=== PATIENT | male | born 1995 | race Caucasian/White ===

== ENCOUNTER 2020-09-15 12:19 | Emergency (ER) | payer OTHER ==
[~2020-09-15] VITALS: Ht 183 cm; Wt 68.0 kg
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
--- NOTE | 2020-09-15 14:40 | Diagnostic Imaging Report ---
EXAMINATION: CT head and face without contrast. TECHNIQUE: Multiple contiguous axial images were obtained through the face and brain without the use of intravenous contrast. All CT scans use one or more of the following dose optimizing techniques: automated exposure control, MA and/or KvP adjustment based on a patient size and exam type, or iterative reconstruction. HISTORY: Trauma COMPARISON: None available. FINDINGS: The ortiz-white matter differentiation is normal. No mass effect or midline shift. The ventricles are normal in size and configuration. Basilar cisterns are patent. There are no intra- or extra-axial fluid collections. There is no intracranial hemorrhage. The orbits are normal. There is bilateral maxillary sinus mucosal disease. Mastoid air cells are clear. No soft tissue abnormality is seen. No osseus lesions or fractures are seen. There is a mildly displaced fracture of the ankle of the right mandible extending into the alveolar ridge of the third right mandibular molar. Temporomandibular joint articulation is intact. There is soft tissue swelling throughout the right cheek. There is gas in the right agricultural commodities grader space. There is a periapical lucency of the right maxillary second incisor. The nasal bones are normal. Zygomatic arches are normal. Pterygoid plates are normal. IMPRESSION: 1. No acute intracranial abnormality. 2. Mildly displaced fracture of the angle of the right mandible extending at valvular region of the third right mandibular molar with extensive associated soft tissue swelling and stranding and gas in the right agricultural commodities grader space. Dictated by: Dictated on workstation # [id number]
[2020-09-15] MEDS ORDERED: LIDOCAINE 1% INJ 20 ML 20 ML VIAL INJ ONE (15:15)
[2020-09-15] MEDS ORDERED: cefTRIAXone 1,000 MG/2.86 ml vial (IM ONLY) IM ONE (15:15)
[2020-09-15] MEDS ORDERED: AMOX-358 PO (15:32)
[2020-09-15] MEDS ORDERED: ACHD5005 PO (15:32)
[2020-09-15] MEDS ORDERED: HYDROcodone/APAP 7.5 MG/325 MG (LORTAB, LORCET PLUS) TABLET PO ONE (15:45)
[2020-09-15 16:00] VITALS: BP 150/90
== END 2020-09-15 16:00 | disposition home or self-care (01) ==
LOC: ER 12:22
DX: S02.651A Fracture of angle of right mandible, initial encounter for closed fracture (principal); Z88.2 Allergy status to sulfonamides; Y04.8XXA Assault by other bodily force, initial encounter
CPT/HCPCS: 70450; 70486

== ENCOUNTER 2020-11-06 16:14 | Emergency (ER) | payer SELFPAY ==
[~2020-11-06] VITALS: Ht 182 cm; Wt 68.0 kg
[~2020-11-06 16:14] MED LIST: ACHD5005 PO; AMOX-358 PO
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
[2020-11-06 17:58] LABS: BASOPHILS # (AUTO) 0.1 10^3/uL (0.0-0.1); BASOPHILS % (AUTO) 1 % (0-10); EOSINOPHILS # (AUTO) 0.1 10^3/uL (0.0-0.3); EOSINOPHILS % (AUTO) 1 % (0-10); HEMATOCRIT 46 % (40-54); HEMOGLOBIN 15.6 g/dL (13.3-17.7); LYMPHOCYTES # (AUTO) 2.2 10^3/uL (1.0-4.0); LYMPHOCYTES % (AUTO) 21 % (12-44); MEAN CORPUSCULAR HEMOGLOBIN 31 pg (25-34); MEAN CORPUSCULAR HGB CONC 34 g/dL (32-36); MEAN CORPUSCULAR VOLUME 91 fL (80-99); MEAN PLATELET VOLUME 10.6 fL (9.0-12.2); MONOCYTES # (AUTO) 0.8 10^3/uL (0.0-1.0); MONOCYTES % (AUTO) 7 % (0-12); NEUTROPHILS # (AUTO) 7.4 10^3/uL (1.8-7.8); NEUTROPHILS % (AUTO) 70 % (42-75); PLATELET COUNT 278 10^3/uL (130-400); WHITE BLOOD COUNT 10.6 10^3/uL (4.3-11.0)
[2020-11-06 18:08] LABS: ALBUMIN 4.7 GM/DL (3.2-4.5); CHLORIDE 102 MMOL/L (98-107); POTASSIUM 3.8 MMOL/L (3.6-5.0); SODIUM 139 MMOL/L (135-145)
[2020-11-06 18:09] LABS: CALCIUM 9.4 MG/DL (8.5-10.1)
[2020-11-06 18:10] LABS: GLUCOSE 102 MG/DL (70-105)
[2020-11-06 18:11] LABS: TOTAL PROTEIN 7.6 GM/DL (6.4-8.2)
[2020-11-06 18:12] LABS: BILIRUBIN,TOTAL 0.6 MG/DL (0.1-1.0); CARBON DIOXIDE 21 MMOL/L (21-32)
[2020-11-06 18:14] LABS: ALKALINE PHOSPHATASE 71 U/L (40-136); CREATININE SERUM 1.01 MG/DL (0.60-1.30); GFR ESTIMATED > 60
[2020-11-06 18:16] LABS: ACETAMINOPHEN < 10 UG/ML (10-30); BUN/CREATININE RATIO 10
[2020-11-06 18:17] LABS: ALANINE AMINOTRANSFERASE 17 U/L (0-55); SALICYLATE < 5.0 MG/DL (5.0-20.0)
[2020-11-06] MEDS ORDERED: cloNIDine 0.1 MG (CATAPRES) TAB PO ONE (18:45)
[2020-11-06 19:10] LABS: BILIRUBIN,URINE NEGATIVE (NEGATIVE); CLARITY,URINE CLEAR; COLOR,URINE YELLOW; GLUCOSE, URINE (UA) NEGATIVE (NEGATIVE); KETONES,URINE 1+ (NEGATIVE); LEUKOCYTE ESTERASE ,URINE NEGATIVE (NEGATIVE); NITRITE,URINE NEGATIVE (NEGATIVE); PH,URINE 6.5 (5-9); PROTEIN,URINE NEGATIVE (NEGATIVE)
[2020-11-06 19:33] LABS: BACTERIA,URINE NEGATIVE /HPF
[2020-11-06 19:39] LABS: AMPHETAMINE SCREEN, URINE NEGATIVE (NEGATIVE); BARBITURATE SCREEN URINE NEGATIVE (NEGATIVE); BENZODIAZEPINES SCREEN URINE NEGATIVE (NEGATIVE); CANNABINOID SCREEN, URINE NEGATIVE (NEGATIVE); COCAINE SCREEN URINE NEGATIVE (NEGATIVE); METHADONE STAT NEGATIVE (NEGATIVE); METHAMPHETAMINE SCREEN URINE S NEGATIVE (NEGATIVE); OPIATE SCREEN URINE NEGATIVE (NEGATIVE); OXYCODONE STAT NEGATIVE (NEGATIVE); PROPOXYPHENE STAT NEGATIVE (NEGATIVE); TRICYCLIC ANTIDEPRESSANTS SCRE NEGATIVE (NEGATIVE)
[2020-11-06 20:08] VITALS: BP 145/89
[2020-11-06] MEDS ORDERED: CIPROFLOXACIN 0.3% (CILOXAN) 2.5 ML BTL OP SCH (21:00)
== END 2020-11-06 20:10 ==
LOC: EDUNIT# 16:22 → ER 16:23
DX: F29 Unspecified psychosis not due to a substance or known physiological condition (principal); F15.90 Other stimulant use, unspecified, uncomplicated; Z88.2 Allergy status to sulfonamides; Z87.891 Personal history of nicotine dependence; Z20.822 Contact with and (suspected) exposure to COVID-19
CPT/HCPCS: 80053; 80306; 81000; 85025; 93005; 99285; G0480 ×3; U0002; 36415; 80320; 80329; 87635

== ENCOUNTER 2021-01-13 18:20 | Emergency (ER) | payer SELFPAY ==
[~2021-01-13] VITALS: Ht 182 cm; Wt 70.3 kg
--- NOTE | 2021-01-13 18:52 | ED Psychosocial ---
General Chief Complaint: Altered Mental Status Stated Complaint: MENTAL HEALTH EVAL Source: family (BROTHER--VERY LIMITED HISTORIAN, AND HIS SPEECH IS RAPID AND ERRATIC AND TANGIENTIAL, AND WITH CONSTANT MOVEMENTS--UNABLE TO STAND OR SIT STILL OR SIT FOR ANY LENGTH OF TIME, PACING, ETC. ) Exam Limitations: other (PT UNABLE TO PROVIDE RELIABLE INFORMATION AT THIS TIME--APPEARS TO BE UNDER THE INFLUNECE OF SOME SUBSTANCE/S) History of Present Illness Date Seen by Provider: Jan 13, 2021 Time Seen by Provider: 18:31 Initial Comments PT ARRIVES VIA POV FROM HOME WITH BROTHER, ARRIVES WITH SUITCASE BROTHER STATES "HE'S JUST NOT CLICKIN'" "THINK HE MIGHT BE ON DRUGS--METH, MARIJUANA" BROTHER STATES "JUST NOT GETTING THERE--NOT WHERE HE NEEDS TO BE" BROTHER STATES HE IS NOT SURE HOW LONG PT HAS BEEN LIKE THIS--"MAYBE A MONTH-I DON'T KNOW" BROTHER STATES "I TALK TO HIM AND HE JUST LAUGHS" BROTHER STATES "I THINK HE WAS IN REHAB ABOUT A MONTH AGO AND HE GOT KICKED OU T--FOR, YOU KNOW" --THINKS IT MIGHT HAVE BEEN IN [place]-BROTHER STATES "I DON'T REALLY KNOW" PT WAS HERE 11/06/20 FOR PSYCHOSIS, AND TRANSFERRED TO [facility] [place]. UDS + FOR PCP AT THAT TIME PT STATES HE HAS NOT SEEN ANYONE FOR MENTAL HEALTH, AND DOES NOT TAKE ANY MEDICATIONS "BUT I PROBABLY AM SUPPOSED TO" PT UNABLE TO ANSWER MANY QUESTIONS--SIMPLY DOESN'T ANSWER, OR WITH DIFFICULTY FORMING THOUGHTS, BUT IS ABLE TO ANSWER SOME YES/NO QUESTIONS. PT STATES HE HAS SMOKED CIGARETTES TODAY--"DOESN'T THINK" HE SMOKED METH OR MARIJUANA TODAY, BUT NOT SURE. BROTHER DOES NOT KNOW ANY OF PT'S PAST HISTORY OR ANY ADDITIONAL INFORMATION. BROTHER STATES THEY LIVE TOGETHER. PT'S FIRST VISIT HERE WAS IN AUGUST 2020 FOR MANDIBULAR FRACTURE DURING AN A LTERCATION WHILE HE WAS IN PRISON PCP: LISA-SONG MEDRANO PT Allergies and Home Medications Allergies Uncoded Allergies: sulfa (Adverse Reaction, Unknown, 09/15/20) Patient Home Medication List Home Medication List Reviewed: Yes Review of Systems Constitutional: other (UNABLE TO OBTAIN RELIABLE INFORMATION FROM PT. BUT DENIES ANY FEVER OR RECENT ILLNESS) Past Alfvweu-Canyek-Bnugql Hx Patient Social History Alcohol Use: Occasionally Uses Drug of Choice: THC, METH, PCP Smoking Status: Current Everyday Smoker Type Used: Cigarettes Recent Hopitalizations: No Substance type: Methamphetamine, Marijuana, Other (PCP) Past Medical History Surgeries: Yes (FINGER SURGERY) Orthopedic Respiratory: No Cardiac: No Neurological: No Genitourinary: No Gastrointestinal: No Musculoskeletal: No Endocrine: No HEENT: Yes (RIGHT MANDIBLE FX 08/2020-ALTERCATION IN PRISON) Cancer: No Psychosocial: Yes (POLYSUBSTANCE ABUSE, PSYCHOSIS, SUICIDAL IDEATION) Integumentary: No Blood Disorders: No Family Medical History ADDITIONAL SOCIAL HISTORY: -MULTIPLE INCARCERATIONS; LAST INCARCERATION AT [facility] 12/31-01/05/21 FOR FAILURE TO APPEAR. PREVIOUS INCARCERATION IN OCTOBER FOR CRIMINAL TRESPASS Physical Exam Vital Signs - First Documented 01/13/21 01/13/21 18:40 22:44 Temp 36.7 Pulse 89 Resp 20 B/P (MAP) 152/105 (121) Pulse Ox 97 O2 Delivery Room Air Capillary Refill : Height, Weight, BMI Height: '" Weight: lbs. oz. kg; 20.00 BMI Method: General Appearance: other (CONSTANT MOVEMENTS, SMILING CONTINUOUSLY, LAUGHING FREQUENTLY, RANDOMLY AND INAPPROPRIATELY AND FOR NO APPARENT REASON. DOES NOT MAKE EYE CONTACT. VERY LIMITED TALKING BUT SPEECH IS CLEAR. 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 BUT DOES NOT ALWAYS ANSWER QUESTIONS, AND SPEECH IS DELAYED MOST OF THE TIME--APPEARS TO HAVE DIFFICULTY FORMING THOUGHTS. DOES KNOW THAT HE IS IN A HOSPITAL IN [place]. WHEN ASKED WHY HE IS HERE OR WHAT PROBLEMS HE IS HAVING, HE SIMPLY DOES NOT ANSWER, BUT IS CONSTANTLY SMILING. CONSTANT MOVEMENTS OF BODY, CONSTANTLY TAPPING FINGERS, POINTING, ETC. ) Appearance/Memory: disheveled, impaired insight, other (UNABLE TO DETERMINE IF MEMORY IS IMPAIRED, HE SIMPLY DOES NOT ANSWER MANY QUESTIONS. ) Behavior/Eye Contact: avoids eye contact Skin: normal color, warm/dry, tattoos/piercings (TATTOOS), other (NO EXTERNAL EVIDENCE OF TRAUMA, OTHER THAN SCABBED WOUNDS ON ANTERIOR ASPECTS OF ANKLES--PT STATES IT IS FROM WALKING ALL OVER--WHERE SHOES RUB. NO SIGNS OF INFECTION, NO BLEEDING. ) Progress/Results/Core Measures Results/Orders Lab Results Laboratory Tests Test 01/13/21 18:45 01/13/21 18:53 01/13/21 19:16 Range/Units SARS-CoV-2 RNA (RT-PCR) Not Detected Not Detecte White Blood Count 8.7 4.3-11.0 10^3/uL Red Blood Count 4.90 4.30-5.52 10^6/uL Hemoglobin 15.2 13.3-17.7 g/dL Hematocrit 46 40-54 % Mean Corpuscular Volume 94 80-99 fL Mean Corpuscular Hemoglobin 31 25-34 pg Mean Corpuscular Hemoglobin Concent 33 32-36 g/dL Red Cell Distribution Width 13.2 10.0-14.5 % Platelet Count 283 130-400 10^3/uL Mean Platelet Volume 10.3 9.0-12.2 fL Immature Granulocyte % (Auto) 0 % Neutrophils (%) (Auto) 54 42-75 % Lymphocytes (%) (Auto) 36 12-44 % Monocytes (%) (Auto) 7 0-12 % Eosinophils (%) (Auto) 2 0-10 % Basophils (%) (Auto) 1 0-10 % Neutrophils # (Auto) 4.7 1.8-7.8 10^3/uL Lymphocytes # (Auto) 3.2 1.0-4.0 10^3/uL Monocytes # (Auto) 0.6 0.0-1.0 10^3/uL Eosinophils # (Auto) 0.2 0.0-0.3 10^3/uL Basophils # (Auto) 0.1 0.0-0.1 10^3/uL Immature Granulocyte # (Auto) 0.0 0.0-0.1 10^3/uL Sodium Level 143 135-145 MMOL/L Potassium Level 3.8 3.6-5.0 MMOL/L Chloride Level 105 98-107 MMOL/L Carbon Dioxide Level 28 21-32 MMOL/L Anion Gap 10 5-14 MMOL/L Blood Urea Nitrogen 10 7-18 MG/DL Creatinine 1.29 0.60-1.30 MG/DL Estimat Glomerular Filtration Rate > 60 BUN/Creatinine Ratio 8 Glucose Level 94 70-105 MG/DL Calcium Level 8.9 8.5-10.1 MG/DL Corrected Calcium 8.5 8.5-10.1 MG/DL Total Bilirubin 0.4 0.1-1.0 MG/DL Aspartate Amino Transf (AST/SGOT) 19 5-34 U/L Alanine Aminotransferase (ALT/SGPT) 18 0-55 U/L Alkaline Phosphatase 59 40-136 U/L Total Protein 7.2 6.4-8.2 GM/DL Albumin 4.5 3.2-4.5 GM/DL TSH [place] Testing 1.05 0.35-4.94 UIU/ML Salicylates Level < 5.0 L 5.0-20.0 MG/DL Acetaminophen Level < 10 L 10-30 UG/ML Serum Alcohol < 10 <10 MG/DL Urine Color YELLOW Urine Clarity CLEAR Urine pH 6.5 5-9 Urine Specific [place] 1.025 H 1.016-1.022 Urine Protein NEGATIVE NEGATIVE Urine Glucose (UA) NEGATIVE NEGATIVE Urine Ketones NEGATIVE NEGATIVE Urine Nitrite NEGATIVE NEGATIVE Urine Bilirubin NEGATIVE NEGATIVE Urine Urobilinogen 1.0 < = 1.0 MG/DL Urine Leukocyte Esterase NEGATIVE NEGATIVE Urine RBC (Auto) NEGATIVE NEGATIVE Urine RBC NONE /HPF Urine WBC NONE /HPF Urine Crystals NONE /LPF Urine Bacteria NEGATIVE /HPF Urine Casts NONE /LPF Urine Mucus NEGATIVE /LPF Urine Culture Indicated NO Urine Opiates Screen NEGATIVE NEGATIVE Urine Oxycodone Screen NEGATIVE NEGATIVE Urine Methadone Screen NEGATIVE NEGATIVE Urine Propoxyphene Screen NEGATIVE NEGATIVE Urine Barbiturates Screen NEGATIVE NEGATIVE Ur Tricyclic Antidepressants Screen NEGATIVE NEGATIVE Urine Phencyclidine Screen NEGATIVE NEGATIVE Urine Amphetamines Screen NEGATIVE NEGATIVE Urine Methamphetamines Screen NEGATIVE NEGATIVE Urine Benzodiazepines Screen NEGATIVE NEGATIVE Urine Cocaine Screen NEGATIVE NEGATIVE Urine Cannabinoids Screen POSITIVE H NEGATIVE My Orders Orders - GILMER MORRISSEY DO Urinalysis (01/13/21 18:26) Thyroid Analyzer (01/13/21 18:26) Drug Screen Stat (Urine) (01/13/21 18:26) Cbc With Automated Diff (01/13/21 18:26) Comprehensive Metabolic Panel (01/13/21 18:26) Alcohol (01/13/21 18:26) Acetaminophen (01/13/21 18:26) Salicylate (01/13/21 18:26) Ekg Tracing (01/13/21 18:26) Covid 19 Inhouse Test (01/13/21 18:26) Vital Signs/I&O 01/13/21 01/13/21 18:40 22:44 Temp 36.7 36.4 Pulse 89 68 Resp 20 16 B/P (MAP) 152/105 (121) 149/98 Pulse Ox 97 98 O2 Delivery Room Air Progress Progress Note : Progress Note UNEVENTFUL ER STAY PT RESTED QUIETLY FOR ENTIRE ER STAY, HAD NO COMPLAINTS REMAINED COOPERATIVE Initial ECG Impression Date: Jan 13, 2021 Initial ECG Impression Time: 18:42 Initial ECG Rate: 88 Initial ECG Rhythm: Normal Sinus Departure Communication (Admissions) 2014--CALLED [facility], HAVE BEDS AT [facility]. PAGING RESIDENT PSYCHIATRIST ACCOUNTS SPECIALIST. LATER [facility] CALLED BACK AND WANTED PT RECORDS FAXED TO THEM FOR REVIEW. THEY WILL CALL BACK. FAXED BY RN. 2202--CALLED [facility], MESSAGE LEFT ON MACHINE 2311--SPOKE WITH DR. MENDEZ, RESIDENT PSYCHIATRIST, ACCEPTS PT FOR ADMIT/TRANSFER. WANTS AFFIDAVIT FILLED OUT. THIS IS DONE, BUT THERE IS NO NOTARY AVAILABLE HERE AT THIS TIME. 2316--SPOKE WITH [facility], FOR SECURE TRANSPORT, WILL BE HERE IN APPROXIMATELY 20 MINUTES. Impression Primary Impression: Psychosis Additional Impressions: Illicit drug use Marijuana use Disposition: 65 XFER TO PSYCH HOSP/UNIT Condition: Stable Transfer Transfer Reason: Exceeds level of care Transfer Facility: [facility], [facility] Method of Transfer: Private Vehicle (SECURE TRANSPORT, [facility]) Departure-Patient Inst. Referrals: [facility] (PCP/Family) Primary Care Physician GILMER MORRISSEY DO Jan 13, 2021 18:52
[2021-01-13 19:11] LABS: BASOPHILS # (AUTO) 0.1 10^3/uL (0.0-0.1); BASOPHILS % (AUTO) 1 % (0-10); EOSINOPHILS # (AUTO) 0.2 10^3/uL (0.0-0.3); EOSINOPHILS % (AUTO) 2 % (0-10); HEMATOCRIT 46 % (40-54); HEMOGLOBIN 15.2 g/dL (13.3-17.7); LYMPHOCYTES # (AUTO) 3.2 10^3/uL (1.0-4.0); LYMPHOCYTES % (AUTO) 36 % (12-44); MEAN CORPUSCULAR HEMOGLOBIN 31 pg (25-34); MEAN CORPUSCULAR HGB CONC 33 g/dL (32-36); MEAN CORPUSCULAR VOLUME 94 fL (80-99); MEAN PLATELET VOLUME 10.3 fL (9.0-12.2); MONOCYTES # (AUTO) 0.6 10^3/uL (0.0-1.0); MONOCYTES % (AUTO) 7 % (0-12); NEUTROPHILS # (AUTO) 4.7 10^3/uL (1.8-7.8); NEUTROPHILS % (AUTO) 54 % (42-75); PLATELET COUNT 283 10^3/uL (130-400); WHITE BLOOD COUNT 8.7 10^3/uL (4.3-11.0)
[2021-01-13 19:38] LABS: ALBUMIN 4.5 GM/DL (3.2-4.5); CHLORIDE 105 MMOL/L (98-107); POTASSIUM 3.8 MMOL/L (3.6-5.0); SODIUM 143 MMOL/L (135-145)
[2021-01-13 19:39] LABS: CALCIUM 8.9 MG/DL (8.5-10.1)
[2021-01-13 19:40] LABS: GLUCOSE 94 MG/DL (70-105)
[2021-01-13 19:41] LABS: CARBON DIOXIDE 28 MMOL/L (21-32); TOTAL PROTEIN 7.2 GM/DL (6.4-8.2)
[2021-01-13 19:42] LABS: BILIRUBIN,TOTAL 0.4 MG/DL (0.1-1.0)
[2021-01-13 19:42] LABS: BILIRUBIN,URINE NEGATIVE (NEGATIVE); CLARITY,URINE CLEAR; COLOR,URINE YELLOW; GLUCOSE, URINE (UA) NEGATIVE (NEGATIVE); KETONES,URINE NEGATIVE (NEGATIVE); LEUKOCYTE ESTERASE ,URINE NEGATIVE (NEGATIVE); NITRITE,URINE NEGATIVE (NEGATIVE); PH,URINE 6.5 (5-9); PROTEIN,URINE NEGATIVE (NEGATIVE)
[2021-01-13 19:44] LABS: ALKALINE PHOSPHATASE 59 U/L (40-136); CREATININE SERUM 1.29 MG/DL (0.60-1.30); GFR ESTIMATED > 60
[2021-01-13 19:46] LABS: BUN/CREATININE RATIO 8
[2021-01-13 19:47] LABS: ALANINE AMINOTRANSFERASE 18 U/L (0-55); SALICYLATE < 5.0 MG/DL (5.0-20.0)
[2021-01-13 19:50] LABS: BACTERIA,URINE NEGATIVE /HPF
[2021-01-13 20:05] LABS: ACETAMINOPHEN < 10 UG/ML (10-30)
[2021-01-13 20:05] LABS: AMPHETAMINE SCREEN, URINE NEGATIVE (NEGATIVE); BARBITURATE SCREEN URINE NEGATIVE (NEGATIVE); BENZODIAZEPINES SCREEN URINE NEGATIVE (NEGATIVE); CANNABINOID SCREEN, URINE POSITIVE (NEGATIVE); COCAINE SCREEN URINE NEGATIVE (NEGATIVE); METHADONE STAT NEGATIVE (NEGATIVE); METHAMPHETAMINE SCREEN URINE S NEGATIVE (NEGATIVE); OPIATE SCREEN URINE NEGATIVE (NEGATIVE); OXYCODONE STAT NEGATIVE (NEGATIVE); PROPOXYPHENE STAT NEGATIVE (NEGATIVE); TRICYCLIC ANTIDEPRESSANTS SCRE NEGATIVE (NEGATIVE)
[2021-01-13 20:07] LABS: TSH (THYROID ANALYZER) 1.05 UIU/ML (0.35-4.94)
[2021-01-13 22:44] VITALS: BP 149/98
== END 2021-01-13 22:52 ==
LOC: EDUNIT# 18:20 → ER 18:21
DX: F29 Unspecified psychosis not due to a substance or known physiological condition (principal); F19.90 Other psychoactive substance use, unspecified, uncomplicated; F12.90 Cannabis use, unspecified, uncomplicated; F17.210 Nicotine dependence, cigarettes, uncomplicated; Z20.822 Contact with and (suspected) exposure to COVID-19
CPT/HCPCS: 80053; 80306; 81000; 84443; 85025; 87636; 93005; 99285; G0480 ×3; 36415; 80320; 80329

== ENCOUNTER 2023-05-20 13:38 | Emergency (ER) | payer SELFPAY ==
[~2023-05-20] VITALS: Ht 182.8 cm; Wt 68.0 kg
--- NOTE | 2023-05-20 14:07 | ED General ---
General Chief Complaint: Altered Mental Status Stated Complaint: BLOOD PRESSURE PROBLEMS/SEEMS UNSTABLE Source of Information: Patient Exam Limitations: No Limitations History of Present Illness Date Seen by Provider: May 20, 2023 Time Seen by Provider: 14:05 Initial Comments Patient is a 27-year-old male who presents the ED for change in behavior. Patient lives at home with grandmother. Patient did not wake up like his normal self this morning. Patient appeared altered and confused. Was slow to answer. Patient was not wearing a shirt. Patient did eventually drink his coffee and did eat lunch. She states patient seems to be off and delirious. She denies history of similar symptoms in the past. She did take his blood pressure which read 165/95. Patient states he did drink some alcohol few days ago. Has been drug-free for at least a year. No history of mental health diagnoses according to grandmother. Patient denies of any chest pain, abdominal pain, shortness of breath, cough, ear pain, headache, dizziness, unilateral muscle weakness or sensory changes. No recent travels or surgeries. Denies of any current drug use. Patient denies any hallucinations. Allergies and Home Medications Allergies Coded Allergies: Sulfa (Sulfonamide Antibiotics) (Verified Allergy, Unknown, 05/20/23) Patient Home Medication List Home Medication List Reviewed: Yes Olanzapine (Zyprexa) 5 Mg Tablet, 5 MG PO DAILY Prescribed by: LEONIE BABB on 05/20/23 1603 Review of Systems Review of Systems Constitutional: No chills, No diaphoresis EENTM: No ear pain, No blurred vision, No double vision Respiratory: No cough, No dyspnea on exertion Cardiovascular: No chest pain Gastrointestinal: No abdominal pain, No nausea, No vomiting Genitourinary: No decreased output, No discharge Musculoskeletal: No back pain, No joint pain Skin: No change in color, No change in hair/nails Psychiatric/Neurological: Other (Confusion) All Other Systems Reviewed Negative Unless Noted: Yes Past Cjaniow-Tjvqrx-Uvxsfy Hx Patient Social History Tobacco Use?: Yes Tobacco type used: Cigarettes Smoking Status: Current Everyday Smoker Use of E-Cig and/or Vaping dev: No Additional substance use comme: PAST HISTORY Alcohol Use?: Yes Alcohol Frequency: Once in a while Pt feels they are or have been: No Past Medical History Surgeries: Yes (FINGER SURGERY) Orthopedic Respiratory: No Cardiac: No Neurological: No Genitourinary: No Gastrointestinal: No Musculoskeletal: No Endocrine: No HEENT: Yes (RIGHT MANDIBLE FX 08/2020-ALTERCATION IN [facility]) Cancer: No Psychosocial: Yes (POLYSUBSTANCE ABUSE, PSYCHOSIS, SUICIDAL IDEATION) Integumentary: No Blood Disorders: No Family Medical History ADDITIONAL SOCIAL HISTORY: -MULTIPLE INCARCERATIONS; LAST INCARCERATION AT [facility] 12/31-01/05/21 FOR FAILURE TO APPEAR. PREVIOUS INCARCERATION IN OCTOBER FOR CRIMINAL TRESPASS Physical Exam Vital Signs Vital Signs - First Documented 05/20/23 13:47 Temp 37.1 Pulse 98 Resp 16 B/P (MAP) 161/112 (128) Pulse Ox 99 O2 Delivery Room Air Capillary Refill : Height, Weight, BMI Height: '" Weight: lbs. oz. kg; 21.00 BMI Method: General Appearance: No Apparent Distress, WD/WN Eyes: Bilateral Eye Normal Inspection, Bilateral Eye PERRL, Bilateral Eye EOMI HEENT: PERRL/EOMI, TMs Normal, Normal ENT Inspection, Pharynx Normal Neck: Full Range of Motion, Normal Inspection, Non Tender Respiratory: Chest Non Tender, Lungs Clear, Normal Breath Sounds, No Accessory Muscle Use Cardiovascular: Regular Rate, Rhythm, No Edema, No Gallop, No JVD Gastrointestinal: Normal Bowel Sounds, No Organomegaly, No Pulsatile Mass Back: Normal Inspection, No CVA Tenderness Extremity: Normal Capillary Refill, Normal Inspection Neurologic/Psychiatric: Alert, Oriented x3, No Motor/Sensory Deficits, Normal Mood/Affect Skin: Normal Color, Warm/Dry Progress/Results/Core Measures Suspected Sepsis SIRS Temperature: Pulse: Respiratory Rate: Laboratory Tests 05/20/23 13:59: White Blood Count 9.2 Blood Pressure / Mean: Laboratory Tests 05/20/23 13:59: Creatinine 1.09, Platelet Count 255, Total Bilirubin 0.5 Results/Orders Lab Results Laboratory Tests Test 05/20/23 13:59 05/20/23 14:55 Range/Units White Blood Count 9.2 4.3-11.0 10^3/uL Red Blood Count 5.26 4.30-5.52 10^6/uL Hemoglobin 16.0 13.3-17.7 g/dL Hematocrit 47 40-54 % Mean Corpuscular Volume 90 80-99 fL Mean Corpuscular Hemoglobin 30 25-34 pg Mean Corpuscular Hemoglobin Concent 34 32-36 g/dL Red Cell Distribution Width 13.1 10.0-14.5 % Platelet Count 255 130-400 10^3/uL Mean Platelet Volume 11.1 9.0-12.2 fL Immature Granulocyte % (Auto) 0 % Neutrophils (%) (Auto) 59 42-75 % Lymphocytes (%) (Auto) 30 12-44 % Monocytes (%) (Auto) 7 0-12 % Eosinophils (%) (Auto) 3 0-10 % Basophils (%) (Auto) 1 0-10 % Neutrophils # (Auto) 5.4 1.8-7.8 X 10^3 Lymphocytes # (Auto) 2.7 1.0-4.0 X 10^3 Monocytes # (Auto) 0.6 0.0-1.0 X 10^3 Eosinophils # (Auto) 0.3 0.0-0.3 10^3/uL Basophils # (Auto) 0.1 0.0-0.1 10^3/uL Immature Granulocyte # (Auto) 0.0 0.0-0.1 10^3/uL Sodium Level 140 135-145 MMOL/L Potassium Level 3.9 3.6-5.0 MMOL/L Chloride Level 106 98-107 MMOL/L Carbon Dioxide Level 22 21-32 MMOL/L Anion Gap 12 5-14 MMOL/L Blood Urea Nitrogen 19 H 7-18 MG/DL Creatinine 1.09 0.60-1.30 MG/DL Estimat Glomerular Filtration Rate 95 BUN/Creatinine Ratio 17 Glucose Level 86 70-105 MG/DL Glucometer 95 70-110 MG/DL Calcium Level 9.7 8.5-10.1 MG/DL Corrected Calcium 8.5-10.1 MG/DL Total Bilirubin 0.5 0.1-1.0 MG/DL Aspartate Amino Transf (AST/SGOT) 24 5-34 U/L Alanine Aminotransferase (ALT/SGPT) 44 0-55 U/L Alkaline Phosphatase 61 40-136 U/L Total Protein 7.9 6.4-8.2 GM/DL Albumin 4.8 H 3.2-4.5 GM/DL Thyroid Stimulating Hormone (TSH) 0.99 0.35-4.94 UIU/ML Salicylates Level < 5.0 L 5.0-20.0 MG/DL Acetaminophen Level < 10 L 10-30 UG/ML Serum Alcohol < 10 <10 MG/DL Urine Color YELLOW Urine Clarity CLEAR Urine pH 7.0 5-9 Urine Specific [place] 1.020 1.016-1.022 Urine Protein NEGATIVE NEGATIVE Urine Glucose (UA) NEGATIVE NEGATIVE Urine Ketones NEGATIVE NEGATIVE Urine Nitrite NEGATIVE NEGATIVE Urine Bilirubin NEGATIVE NEGATIVE Urine Urobilinogen 0.2 < = 1.0 MG/DL Urine Leukocyte Esterase NEGATIVE NEGATIVE Urine RBC (Auto) NEGATIVE NEGATIVE Urine RBC NONE /HPF Urine WBC NONE /HPF Urine Squamous Epithelial Cells NONE /HPF Urine Crystals NONE /LPF Urine Bacteria NEGATIVE /HPF Urine Casts NONE /LPF Urine Mucus NEGATIVE /LPF Urine Culture Indicated NO Urine Opiates Screen NEGATIVE NEGATIVE Urine Oxycodone Screen NEGATIVE NEGATIVE Urine Methadone Screen NEGATIVE NEGATIVE Urine Propoxyphene Screen NA NEGATIVE Urine Barbiturates Screen NEGATIVE NEGATIVE Ur Tricyclic Antidepressants Screen NEGATIVE NEGATIVE Urine Phencyclidine Screen NEGATIVE NEGATIVE Urine Amphetamines Screen NEGATIVE NEGATIVE Urine Methamphetamines Screen NEGATIVE NEGATIVE Urine Benzodiazepines Screen NEGATIVE NEGATIVE Urine Cocaine Screen NEGATIVE NEGATIVE Urine Cannabinoids Screen POSITIVE H NEGATIVE My Orders Orders - STEVE CHOI Ua Culture If Indicated (05/20/23 14:03) Cbc And Automated Diff (05/20/23 14:03) Comprehensive Metabolic Panel (05/20/23 14:03) Alcohol (05/20/23 14:03) Drug Screen Stat (Urine) (05/20/23 14:03) Acetaminophen (05/20/23 14:03) Salicylate (05/20/23 14:03) Ekg Tracing (05/20/23 14:03) Ed Iv/Invasive Line Start (05/20/23 14:03) Monitor-Rhythm Ecg Trace Only (05/20/23 14:03) Thyroid Stimulating Hormone (05/20/23 14:03) Ct Head Wo (05/20/23 14:03) Olanzapine Orally Dissolve Tab (Olanzapi (05/20/23 14:15) Medications Given in ED Current Medications Medications Dose Ordered Sig/Luma Route Start Time Stop Time Status Last Admin Dose Admin Olanzapine 5 mg ONCE ONCE PO 05/20/23 14:15 05/20/23 14:16 DC 05/20/23 14:10 5 MG Vital Signs/I&O 05/20/23 13:47 Temp 37.1 Pulse 98 Resp 16 B/P (MAP) 161/112 (128) Pulse Ox 99 O2 Delivery Room Air Capillary Refill : Departure Communication (PCP) Differential diagnosis psychosis, drug abuse. Reviewed previous ER visits, H&P, lab testing. Patient has been seen for psychosis in the past. Not currently on medication. Grandmother is not aware the patient was seen in 2020 transfer to [place] for psychosis. No active hallucinations. Denies of any drug use. Patient alert and oriented x3. GCS of 15. Patient does not appear agitated but slightly restless. Patient is soft-spoken and and quiet but does not have appropriate affect and does make good eye contact. does take a little longer to answer questions. Patient has no current pain, headache dizziness vomiting diarrhea chest pain or shortness of breath. Psych work-up was initiated with drug screen. He is afebrile. Patient is not tachycardic. Patient does not appear intoxicated. Patient CBC, CMP grossly unremarkable. Drug screen unremarkable. Urinalysis negative for infection. Normal TSH. Patient Was positive for THC. Patient did receive a dose of Zyprexa 5 mg. This seemed to improve. Discussed all results with grandmother. No evidence suggesting stroke. normal alcohol level I did obtain a CT scan of the head which did not note any acute abnormality. Patient was slightly hypertensive but did improve without intervention. No evidence suggesting hypoxia encephalopathy. No electrolyte abnormality. Normal hepatic function and renal function. No recent medication changes. No meningeal signs. He is afebrile. No seizure-like activity. Concern for a psychiatric component. Since patient did not meet criteria for behavioral health evaluation after contacting discussed with mother follow-up with [facility] for further evaluation. She felt comfortable taking patient home. She reports patient appears to be doing much better. If any worsening symptoms to return back to ED for further evaluation. Will discharge with Zyprexa low-dose for the next 3 days to help with symptoms until seen. Impression Primary Impression: Psychosis Disposition: 01 HOME, SELF-CARE Condition: Stable Departure-Patient Inst. Decision time for Depature: 16:02 [facility] ([facility]Family) Primary Care Physician Patient Instructions: Acute Psychosis (DC), OUTPT MENTAL HEALTH SERVICES Scripts Olanzapine (Zyprexa) 5 Mg Tablet 5 MG PO DAILY for 3 Days, #3 TAB Prov: STEVE CHOI 05/20/23 STEVE CHOI May 20, 2023 14:07
[2023-05-20 14:12] LABS: BASOPHILS # (AUTO) 0.1 10^3/uL (0.0-0.1); BASOPHILS % (AUTO) 1 % (0-10); EOSINOPHILS # (AUTO) 0.3 10^3/uL (0.0-0.3); EOSINOPHILS % (AUTO) 3 % (0-10); HEMATOCRIT 47 % (40-54); LYMPHOCYTES # (AUTO) 2.7 X 10^3 (1.0-4.0); LYMPHOCYTES % (AUTO) 30 % (12-44); MEAN CORPUSCULAR HEMOGLOBIN 30 pg (25-34); MEAN CORPUSCULAR HGB CONC 34 g/dL (32-36); MEAN CORPUSCULAR VOLUME 90 fL (80-99); MEAN PLATELET VOLUME 11.1 fL (9.0-12.2); MONOCYTES # (AUTO) 0.6 X 10^3 (0.0-1.0); MONOCYTES % (AUTO) 7 % (0-12); NEUTROPHILS # (AUTO) 5.4 X 10^3 (1.8-7.8); NEUTROPHILS % (AUTO) 59 % (42-75); PLATELET COUNT 255 10^3/uL (130-400); WHITE BLOOD COUNT 9.2 10^3/uL (4.3-11.0)
[2023-05-20] MEDS ORDERED: OLANZapine 5 MG ODT TABLET PO ONE (14:15)
[2023-05-20 14:16] LABS: ALBUMIN 4.8 GM/DL (3.2-4.5); CHLORIDE 106 MMOL/L (98-107); POTASSIUM 3.9 MMOL/L (3.6-5.0); SODIUM 140 MMOL/L (135-145)
[2023-05-20 14:18] LABS: CALCIUM 9.7 MG/DL (8.5-10.1)
[2023-05-20 14:19] LABS: GLUCOSE 86 MG/DL (70-105); TOTAL PROTEIN 7.9 GM/DL (6.4-8.2)
[2023-05-20 14:20] LABS: CARBON DIOXIDE 22 MMOL/L (21-32)
[2023-05-20 14:21] LABS: BILIRUBIN,TOTAL 0.5 MG/DL (0.1-1.0)
[2023-05-20 14:23] LABS: ALKALINE PHOSPHATASE 61 U/L (40-136); CREATININE SERUM 1.09 MG/DL (0.60-1.30); GFR ESTIMATED 95
[2023-05-20 14:24] LABS: BUN/CREATININE RATIO 17
[2023-05-20 14:26] LABS: ALANINE AMINOTRANSFERASE 44 U/L (0-55); SALICYLATE < 5.0 MG/DL (5.0-20.0)
--- NOTE | 2023-05-20 14:29 | Diagnostic Imaging Report ---
PROCEDURE: CT head without contrast. TECHNIQUE: Multiple contiguous axial images were obtained through the brain without the use of intravenous contrast. Auto Exposure Controls were utilized during the CT exam to meet ALARA standards for radiation dose reduction. DATE: CT head and maxillofacial area September 15, 2020. COMPARISON: CT head May 19, 2023. INDICATION: 27-year-old male, altered mental status. FINDINGS: The ventricles and cerebral spinal fluid spaces are of normal size and configuration for the patient's age. There is no mass effect or midline shift. There is no acute intracranial hemorrhage. There is no abnormal extra-axial fluid collection. The visualized portions of the paranasal sinuses, mastoid air cells and middle ears are well aerated. IMPRESSION: 1. No identified acute intracranial abnormality. Dictated by: Dictated on workstation # [id number]
[2023-05-20 14:54] LABS: ACETAMINOPHEN < 10 UG/ML (10-30)
[2023-05-20 15:18] LABS: COLOR,URINE YELLOW
[2023-05-20 15:20] LABS: CLARITY,URINE CLEAR
[2023-05-20 15:23] LABS: BILIRUBIN,URINE NEGATIVE (NEGATIVE); GLUCOSE, URINE (UA) NEGATIVE (NEGATIVE); KETONES,URINE NEGATIVE (NEGATIVE); LEUKOCYTE ESTERASE ,URINE NEGATIVE (NEGATIVE); NITRITE,URINE NEGATIVE (NEGATIVE); PROTEIN,URINE NEGATIVE (NEGATIVE)
[2023-05-20 15:24] LABS: BACTERIA,URINE NEGATIVE /HPF
[2023-05-20 15:33] LABS: AMPHETAMINE SCREEN, URINE NEGATIVE (NEGATIVE); BARBITURATE SCREEN URINE NEGATIVE (NEGATIVE); CANNABINOID SCREEN, URINE POSITIVE (NEGATIVE); COCAINE SCREEN URINE NEGATIVE (NEGATIVE); METHADONE STAT NEGATIVE (NEGATIVE); OPIATE SCREEN URINE NEGATIVE (NEGATIVE); OXYCODONE STAT NEGATIVE (NEGATIVE); TRICYCLIC ANTIDEPRESSANTS SCRE NEGATIVE (NEGATIVE)
[2023-05-20] MEDS ORDERED: OLAN5TAB3 PO (16:03)
[2023-05-20 16:08] VITALS: BP 131/96
== END 2023-05-20 16:08 | disposition home or self-care (01) ==
LOC: EDUNIT# 13:38 → ER 13:42
DX: F29 Unspecified psychosis not due to a substance or known physiological condition (principal); F17.210 Nicotine dependence, cigarettes, uncomplicated
CPT/HCPCS: 70450; 80053; 80306; 81000; 82947; 84443; 85025; 93005; 93041; 99284; G0480 ×3; 36415; 80320; 80329